=== PATIENT | male | born 1975 | race Caucasian/White ===

== ENCOUNTER 2017-01-25 13:19 | Emergency (ER) | payer MEDICAID ==
[~2017-01-25] VITALS: Ht 180.3 cm; Wt 68.6 kg
[2017-01-25 13:20] VITALS: BP 126/76
[2017-01-25] MEDS ORDERED: LIDOCAINE 1%, 20ML SQ ONE (14:30)
[2017-01-25] MEDS ORDERED: LIDOCAINE 1%, 20ML ONE (14:32)
[2017-01-25] MEDS ORDERED: CEPHALEXIN 500 MG CAPSULE PO ONE (15:00)
[2017-01-25] MEDS ORDERED: SULFAMETH./TRIMETHOPRIM DS 800MG/160MG TABLET PO ONE (15:00)
[2017-01-25] MEDS ORDERED: CEPHALEXIN 500 MG CAPSULE ONE (15:21)
[2017-01-25] MEDS ORDERED: SULFAMETH./TRIMETHOPRIM DS 800MG/160MG TABLET ONE (15:22)
== END 2017-01-25 15:31 | disposition home or self-care (01) ==
LOC: ED 14:38
DX: L02.415 Cutaneous abscess of right lower limb (principal); J45.909 Unspecified asthma, uncomplicated; F90.9 Attention-deficit hyperactivity disorder, unspecified type; Z88.0 Allergy status to penicillin
CPT/HCPCS: 10060